=== PATIENT | female | born 1980 ===

== ENCOUNTER → 2020-07-04 | Outpatient (CLI) | payer OTHER ==
--- NOTE | 2020-07-04 23:11 | RAD ---
INDICATION: Reason: PAIN, INJURY / Spl. Instructions: / History: COMPARISON: None. IMPRESSION: Right foot: 3 views obtained. No evidence of acute fracture or dislocation. Electronically signed by: Gal Brown MD (07/04/2020 11:08 PM) [id number]
== END | disposition home or self-care (01) ==
LOC: RAD 17:29
PROVIDERS: ATTEND Physician Assistant Medical
DX: M79.671 Pain in right foot (principal)
CPT/HCPCS: 73630